=== PATIENT | female | born 1990 | race Caucasian/White ===

== ENCOUNTER 2016-09-05 18:44 | Emergency (ER) | payer OTHER | END 2016-09-05 19:45 | disposition home or self-care (01) | LOC: ER 18:44 | DX: R11.2 Nausea with vomiting, unspecified (principal); Z88.8 Allergy status to other drugs, medicaments and biological substances; Z79.899 Other long term (current) drug therapy | CPT/HCPCS: 87502 ==

== ENCOUNTER 2016-09-28 16:19 | Emergency (ER) | payer OTHER | END 2016-09-28 17:10 | disposition home or self-care (01) | LOC: ER 16:19 | DX: J20.9 Acute bronchitis, unspecified (principal); R03.0 Elevated blood-pressure reading, without diagnosis of hypertension; G43.909 Migraine, unspecified, not intractable, without status migrainosus; F17.210 Nicotine dependence, cigarettes, uncomplicated; Z88.8 Allergy status to other drugs, medicaments and biological substances; Z79.899 Other long term (current) drug therapy | CPT/HCPCS: 87502 ==